=== PATIENT | female | born 1995 | race African-American/Black ===

== ENCOUNTER 2020-09-04 05:45 | Emergency (ER) | payer BC ==
[~2020-09-04] VITALS: Ht 165.1 cm; Wt 54.4 kg
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
--- NOTE | 2020-09-04 05:49 | NUR ---
LINE ESTABLISHED RAC 18G, BLOOD WORK COLLECTED, SENT TO LAB.
[2020-09-04] MEDS ORDERED: IV NS 0.9% 1,000 ML BAG IV ONE (06:00)
[2020-09-04 06:22] LABS: BASOPHILS # (AUTO) 0.1 /CMM (0.0-0.2); BASOPHILS % (AUTO) 1.1 % (0.0-2.0); EOSINOPHILS % (AUTO) 2.7 % (0.0-6.0); HEMATOCRIT 38 % (33-45); LYMPHOCYTES % (AUTO) 40.1 % (20.0-44.0); MEAN CORPUSCULAR HGB CONC 32 g/dl (31.0-36.0); MEAN CORPUSCULAR VOLUME 84 fL (82-100); MONOCYTES # (AUTO) 0.4 /CMM (0.1-1.30); NEUTROPHILS # (AUTO) 3.7 /CMM (1.8-8.9); NEUTROPHILS % (AUTO) 50.1 % (43.0-81.0); PLATELET COUNT (AUTO) 227 /CMM (150-450); RED BLOOD CELL COUNT(AUTO) 4.49 MIL/uL (4.0-5.2); WHITE BLOOD COUNT (AUTO) 7.5 K/uL (4.3-11.0)
[2020-09-04 06:30] LABS: CARBON DIOXIDE 23 mmol/L (21-32); CHLORIDE 104 mmol/L (98-107); CREATININE 0.9 mg/dL (0.6-1.3); GLUCOSE 112 mg/dL (74-106); POTASSIUM 3.7 mmol/L (3.5-5.1); SODIUM SERUM 140 mmol/L (136-145); UREA NITROGEN, BLOOD 7 mg/dL (7-18)
[2020-09-04 06:36] LABS: ALANINE AMINOTRANSFERASE 26 U/L (12-78); ALBUMIN 3.7 g/dL (3.4-5.0); ALCOHOL, BLOOD < 3 mg/dL (0-0); ALKALINE PHOSPHATASE 63 U/L (46-116); ASPARTATE AMINOTRANSFERASE 31 U/L (15-37); BILIRUBIN,DIRECT 0.1 mg/dL (0.0-0.2); BILIRUBIN,TOTAL 0.4 mg/dL (0.2-1.0); TOTAL PROTEIN, SERUM 7.6 g/dL (6.4-8.2)
--- NOTE | 2020-09-04 07:25 | NUR ---
BROUGHT TO CT AND BACK
--- NOTE | 2020-09-04 07:28 | NUR ---
RECEIVED REPORT FROM TONA SAVAGE FOR JERRY. PT IS AAOX4, NOT IN RESPIRATORY DISTRESS, V/S STABLE, KEPT RESTED AND COMFORTABLE. WILL CONTINUE TO MONITOR.
[2020-09-04] MEDS ORDERED: LEVE500T9 PO (07:59)
[2020-09-04] MEDS ORDERED: LEVETIRACETAM (500MG) 500 MG in IV NS 0.9% 100 ML IV SCH (08:00)
--- NOTE | 2020-09-04 08:37 | NUR ---
IV removed. Catheter intact and site benign. Pressure and 4x4 applied to site. No bleeding noted. Patient discharged to home in stable condition. Written and verbal after care instructions given. Patient verbalizes understanding of instruction.
[2020-09-04 08:38] VITALS: BP 125/78
== END 2020-09-04 08:38 | disposition home or self-care (01) ==
LOC: ER 05:45
DX: S00.532A Contusion of oral cavity, initial encounter (principal); R56.9 Unspecified convulsions; R41.0 Disorientation, unspecified; X58.XXXA Exposure to other specified factors, initial encounter; Y93.89 Activity, other specified; Y92.89 Other specified places as the place of occurrence of the external cause; Y99.8 Other external cause status
CPT/HCPCS: 36415; 70450; 80048; 80076; 80307; 80320; 84484; 84702; 85025; 93005; 96361; 96365; 99285; J1953; J7030 ×2; G0480

== ENCOUNTER 2021-01-16 06:48 | Emergency (ER) | payer BC ==
[~2021-01-16] VITALS: Ht 175.3 cm; Wt 59.0 kg
[~2021-01-16 06:48] MED LIST: LEVE500T9 PO
--- NOTE | 2021-01-16 06:52 | NUR ---
PT BIBRA C/O SEIZURE LASTING LESS THAN 1MIN. PT IN POST SICTAL STATE ON ARRIVAL. PT AAOX4 BREATHING EVENLY AND UNLABORED. PT ATTCHED TO MONITOR AND POX. MD AT BEDSIDE. SKIN WARM AND DRY. PT GIVEN BLANKET AND CALL LIGHT WITHIN REACH.
[2021-01-16] MEDS ORDERED: LEVETIRACETAM (500MG) 1,000 MG in IV NS 0.9% 100 ML IV SCH (07:00)
[2021-01-16] MEDS ORDERED: LEVETIRACETAM (500MG) 500 MG/5 ML VIAL IV ONE ×2 (07:06→07:12)
[2021-01-16 07:35] LABS: BASOPHILS # (AUTO) 0.1 K/uL (0.0-0.2); BASOPHILS % (AUTO) 0.6 % (0.0-2.0); EOSINOPHILS % (AUTO) 1.8 % (0.0-6.0); HEMATOCRIT 37 % (33-45); LYMPHOCYTES # (AUTO) 3.2 K/uL (0.8-4.8); MEAN CORPUSCULAR HGB CONC 33 g/dl (31.0-36.0); MEAN CORPUSCULAR VOLUME 84 fL (82-100); MONOCYTES # (AUTO) 0.6 K/uL (0.1-1.30); MONOCYTES % (AUTO) 5.6 % (2.0-12.0); NEUTROPHILS # (AUTO) 6.9 K/uL (1.8-8.9); PLATELET COUNT (AUTO) 227 K/uL (150-450); RED BLOOD CELL COUNT(AUTO) 4.36 MIL/uL (4.0-5.2)
[2021-01-16 07:41] LABS: CALCIUM, SERUM 9.1 mg/dL (8.5-10.1); CREATININE 0.9 mg/dL (0.6-1.3); POTASSIUM 3.8 mmol/L (3.5-5.1)
[2021-01-16 08:06] VITALS: BP 106/69
--- NOTE | 2021-01-16 08:07 | NUR ---
Patient discharged to home in stable condition. Written and verbal after care instructions given. Patient verbalizes understanding of instruction.IV removed. Catheter intact and site benign. Pressure and 4x4 applied to site. No bleeding noted.
== END 2021-01-16 08:07 | disposition home or self-care (01) ==
LOC: ER 06:50
DX: G40.909 Epilepsy, unspecified, not intractable, without status epilepticus (principal); Z79.899 Other long term (current) drug therapy
CPT/HCPCS: 36415; 80048; 84703; 85025; 96365; 99284; J1953 ×3; J7030 ×2